=== PATIENT | female | born 1985 | race Two or more races ===

== ENCOUNTER 2024-12-31 22:47 | Emergency (ER) | payer SELFPAY ==
[2024-12-31 22:50] VITALS: BP 125/80
[2024-12-31 23:30] VITALS: BMI 32.2
--- NOTE | 2025-01-01 00:46 | ED.GENMED ---
History of Present Illness
General
Chief Complaint: Back Pain
Source: patient
Exam Limitations: none
Time Seen by Provider: 01/01/25 00:23
Nursing documentation reviewed up to this point in time: agreed with
History of Present Illness
History of Present Illness:
39 y/o F IDDM
h/o chronic back pain after work related injury in 05/[address] steve
has had MRI 06/2024 showing 'ruptured disc' and went through PT and now will probably need surgery
failed cortisone injections
here with flare of her chronic back pain
says she just put some trash int he trash can tonight at 830 pm and suddenly felt the pain
typical pattern R side lumbar down R leg and into R groin
worse with any change in position
felt best in seated position
took ibuprofen 600 mg at 830 pm
no relief
07/09 pain
no numbnes/tingling/weakness in the leg, no incontiencne
has RX for tramadol but hasn't been approved she says
she had oxycodone in may whne it occurred
Past History
Past History
ED Past Medical History: Hypercholesterolemia and IDDM
ED Past Surgical History: None
Social History
Tobacco: Non-smoker
Alcohol: None
Drug: None
Personal:
Living: with family
Review of Systems
Review of Systems
Allergies reviewed?: Yes
All Other Systems: Not applicable
Phy Exam
Physical Exam
Physical Exam:
GENERAL: Alert , in no apparent distress, comfortable at rest, pain with any change in position
HEAD: NCAT
NECK: no midline tenderness, active ROM intact, no paraspinal muscle tenderness;
CARDIAC: Regular rate and rhythm, no edema
LUNGS: Clear breath sounds bilaterally, no acute respiratory distress, no wheezes/rales/rhonchi
ABDOMEN: Soft, without focal tenderness, no r/g, no cvat, normal bowel sounds, nondistended
nontender abdomen
NEUROLOGICAL: Alert and oriented, no focal neuro deficits, CN intact, 5/5 strength, sensation intact, ambulation slight limp right leg
SKIN: Warm and dry,
MUSCULOSKELETAL: No edema, well perfused. Normal inspection of the right leg
Patient has no tenderness to palpation of the hip, minimal tenderness in the SI joint
Back: No midline tenderness, R parapspinal and lumbar muscle tenderness mid to lower lumbar region
+ straight leg raise on R
neuro intact
limp but strength and sensation present
PSYCH: Normal and appropriate interaction.
Course
Orders/Labs/Results
Orders:
Orders
01/01/25 00:43
Bedside Glucose- Treatment ONCE
Dexamethasone [Decadron] 10 mg PO NOW STA
HYDROmorphone [Dilaudid] 1 mg IM NOW STA
Ketorolac [Toradol] 30 mg IM NOW STA
01/01/25 01:35
Oxycodone [Roxicodone] 5 mg PO NOW STA
Abnormal Lab Results
01/01/25
00:49
POC Glucose 305 H mg/dl
(70-99)
Vital Signs
Initial and Last Documented VS:
Initial Vital Signs
Temp Pulse Resp BP Pulse Ox
36.7 C 102 20 125/80 98
12/31/24 22:50 12/31/24 22:50 12/31/24 22:50 12/31/24 22:50 12/31/24 22:50
Last Documented Vital Signs
Temp Pulse Resp BP Pulse Ox
36.7 C 102 20 125/80 98
12/31/24 22:50 12/31/24 22:50 12/31/24 22:50 12/31/24 22:50 12/31/24 22:50
MDM/Problems Addressed
Differential Diagnosis Includes:
lumar radiculopathy, muscle spasm
MDM/Problems Addressed:
39 y/o F
IDDM, poorly controlled
chronic lumbar radiculopathy
bent slightly forward to put something int he trash and felt flare up of her pain chronic in the R lumbar region radiating into the R leg
limp due to pain but no neurovascualrs ymptoms
on exam pt's midline lumbar region is not tender
she has tenderness laterally and a + straight leg raise 15 degrees
she has neuro intact, normal senseation and strength
no incontinence
no fever
unlikely to have need for emergent MRI
unfortuantely her blood sugar is poorly controlled, she is on several meds and still bg is 300+
will hold steroids
instead, IM pain meds
hyperglycemia could be stress response
will reassess
pt reassessed and feels better
walking slightly better
d/c home oxycodone, colace
*Critical Care Note
Total Time (30-74mins, 75-104mins- exclusive of procedures): Not Applicable
ED Attending Note
-
Portions of this chart may have been created with voice recognition software.� Occasional wrong word or��sound alike� substitutions may have occurred due to the inherent limitations of voice recognition software.
Discharge Plan
Departure
Patient Disposition: Home (Routine Discharge)
Date of Disposition: 01/01/25
Time of Disposition: 02:01
Patient with high blood pressure during this ER visit?: No
Condition: Fair
Covid-19: Not Applicable
Discharge Problem:
Chronic lumbar radiculopathy
Instructions: Radiculopathy (DC)
Prescriptions:
New
oxycodone 5 mg tablet
5 mg PO Q8H PRN (Reason: Pain) Qty: 12 0RF
docusate sodium [Colace] 100 mg capsule
100 mg PO BID Qty: 14 0RF
No Action
cephalexin 500 mg tablet
500 mg PO TID Qty: 21 0RF
Referrals:
Valentino Almendarez MD [Family Provider] - Follow up in 5-7 days
Activity Restrictions/Additional Instructions:
YOU SHOULD CALL YOUR ORTHOPEDIST REGARDING YOUR BACK PAIN
TAKE MOTRIN 3 TIMES A DAY
YOU CAN TAKE OXYCODONE 5 MG EVERY 6 HOURS NEEDED FOR SEVERE PAIN
COLACE TWICE A DAY TO PREVENT CONSTIPATION
TYLENOL EVERY 6 HOURS NEEDED
YORU BLOOD SUGAR IS ELEVATED, YOU SHOULD MAKE SURE TO HAVE THIS UNDER CONTROL, TAKE YOUR INSULIN AND AVOID SUGARS
RETURN FOR: SEVERE PAIN INABILITYT O WALK, FEVER, LEG WEAKNESS, LEG NUMBNESS, INCONTINENCE OR ANY CONCERNS.
Interventions
Interventions:
*Risk Screen - Suicide Last Done: 12/31/24 22:50
*General Assessment Last Done: 12/31/24 23:28
*Neglect/Abuse Screening Last Done: 12/31/24 22:50
*ED- Fall Risk Assessment Last Done: 12/31/24 22:50
*ED COVID-19 Vaccine History Last Done: 12/31/24 22:50
ED-Musculoskeletal Assessment Last Done: 12/31/24 23:28
Discharge Date and Time
Print Language: MONTSERRATIAN
[2025-01-01 00:50] LABS: Glucose - Point of Care 305 mg/dl (70-99)
[2025-01-01] MEDS: TORADOL 30 MG IM (01:15)
[2025-01-01] MEDS: DILAUDID 1 MG IM (01:15)
[2025-01-01] MEDS: ROXICODONE 5 MG PO (01:43)
== END 2025-01-01 02:00 | disposition home or self-care (01) ==
LOC: EMR 22:47
PROVIDERS: EMERGENCY PHYSICIAN Student in an Organized Health Care Education/Training Program; FAMILY PHYSICIAN Family Medicine
DX: M54.16 Radiculopathy, lumbar region (principal)
CPT/HCPCS: 99284; 96372 ×2; 82962

== ENCOUNTER 2025-07-31 18:25 | Emergency (ER) | payer MEDICAID, SELFPAY ==
[2025-07-31 18:32] VITALS: BP 151/92
[2025-07-31 19:02] LABS: Hematocrit 31.0 % (37.0-47.0); Hemoglobin 10.0 g/dL (12.0-16.0); Mean Corp Hgb Conc. 32.3 g/dL (33.0-37.0); Mean Corpuscular Volume 72.1 fL (81.0-99.0); Nucleated Red Blood Cells % 0 %; Platelet Count 298 10^3/uL (130-400); Red Cell Dist. Width 13.1 % (11.5-14.5)
[2025-07-31 19:11] LABS: HCG, Serum Qualitative Screen Negative
[2025-07-31 19:17] LABS: ALT (SGPT) 17 U/L (0-35); AST (SGOT) 18 U/L (14-36); Albumin 4.3 g/dl (3.5-5.0); Alkaline Phosphatase 78 U/L (38-126); Blood Urea Nitrogen 13 mg/dl (7-17); Calcium 9.6 mg/dl (8.4-10.2); Carbon Dioxide 29 mmol/L (22-30); Chloride 103 mmol/L (98-107); Glucose 212 mg/dl (70-99); Potassium 3.9 mmol/L (3.5-5.1); Sodium 139 mmol/L (135-145); Total Protein 7.6 g/dl (6.3-8.2); eGFR > 60.00
[2025-07-31 19:23] LABS: Troponin I < 0.012 ng/ml
[2025-07-31 19:28] LABS: Urine Character Clear (Clear)
[2025-07-31 19:37] LABS: Urine Squamous Cell 21-25 /LPF (Few)
[2025-07-31 19:38] LABS: Urine Red Blood Cell None Seen /HPF (0-2)
[2025-07-31 22:01] VITALS: BP 123/85
[2025-07-31 22:29] VITALS: BP 117/66
[2025-07-31 22:34] VITALS: BMI 31.4
--- NOTE | 2025-07-31 22:38 | EDRN ---
Pt was having chest pain since last week - once last week and this week couple days ago. Today is the third time she has had cp this week. Started around 12-1230 felt squeezing. At 1600 it was a sharp shooting pain traveling down L arm and into L
posterior shoulder. On the way to the ED, pt's L jaw started hurting. Pt says the squeezing sensation is still there 'like something is putting pressure on my chest and squeezing very hard.' No mediations taken for pain. Pt says her pain is now
a 10/10 and says it has been like this every time but she has never thought to take any medication for it. Pt with nausea, vomited once at home when pain started. Pt with reported dry cough. No sob, abd pain, fever/chills, urinary symptoms,
weakness, dizziness. No recent air travel or long car rides, swelling in legs or pain. Nothing changes pain.
[2025-07-31 23:00] VITALS: BP 124/78
[2025-07-31 23:35] LABS: Lipase 456 U/L (23-300)
[2025-08-01] VITALS: BP 107/66
[2025-08-01 01:00] VITALS: BP 110/69
[2025-08-01 01:10] VITALS: BP 114/69
--- NOTE | 2025-08-01 01:59 | ED.GENMED ---
History of Present Illness
General
Chief Complaint: Chest Pain
Source: patient
Time Seen by Provider: 07/31/25 22:31
Nursing documentation reviewed up to this point in time: agreed with
History of Present Illness
History of Present Illness:
Note:
CHIEF COMPLAINT(S)
Chest pain
HISTORY OF PRESENT ILLNESS
The patient is a 39-year-old female with a known history of diabetes, presenting with complaints of chest pain. The symptoms began last week with episodes of pressure-like pain. The patient describes the chest pain as shooting and sharp at times,
occurring while at rest. 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 The patient reported accompanying symptoms of nausea and vomiting but denies any shortness of breath. He
noted the pain radiating to his left arm, jaw, and back. The episodes do not seem to be provoked by activity such as climbing stairs, and there is no noticeable pattern related to meal consumption. The patient mentions the pain just subsiding
spontaneously. She denies any recent use of medication for these symptoms.
PAST MEDICAL AND SURIGICAL HISTORY
The patient has diabetes, currently managed with medications including Ozempic (1 mg) and Lantus (40 units).
EXTERNAL RECORDS REVIEWED
The patients cardiac enzymes have been evaluated and appeared normal at the time of the assessment.
CHRONIC MEDICAL CONDITIONS SIGNIFICANTLY AFFECTING CARE
The patient has diabetes, which is under control with Ozempic and Lantus.
FAMILY HISTORY
The patient reports a family history of cardiac problems. His mother had multiple heart attacks and eventually succumbed to a cardiac-related condition in her mid-60s.
SOCIAL HISTORY
The patient reports occasional alcohol consumption and denies smoking or any recreational drug use. The patient is not currently employed and stays at home.
MEDICATIONS
- Ozempic 1 mg
- Lantus 40 units
PHYSICAL EXAM
General: Alert, minimal to no acute distress.
Skin: Warm, dry.
Head: Normocephalic, atraumatic.
Neck: Supple, trachea midline.
Eyes, Ears, Nose, Mouth and Throat: Oral mucosa moist.
Cardiovascular: Normal peripheral perfusion, No edema.
Respiratory: Respirations are non-labored.
Gastrointestinal: Abdomen nondistended.
Back: Normal range of motion, Normal alignment.
Musculoskeletal: Normal range of motion, normal strength.
Neurological: Alert and oriented to person, place, time, and situation. No focal neurological deficit observed.
Psychiatric: Cooperative, appropriate mood & affect.
PLAN
A chest CT scan is planned to rule out any vascular issues, particularly a pulmonary embolism. Cardiac enzyme analysis was conducted and showed normal results. The patient is informed about these findings and the rationale for the further imaging
study.
DIFFERENTIAL DIAGNOSIS
The Differential Diagnosis includes, in no particular order and is not limited to:
1. Acute Coronary Syndrome
2. Musculoskeletal Pain
3. Gastroesophageal Reflux Disease (GERD)
4. Costochondritis
5. Pulmonary Embolism
6. Aortic Dissection
7. Pericarditis
8. Esophageal Spasm
9. Panic Attack/Anxiety
10. Peptic Ulcer Disease
Disposition:
SUMMARY OF ENCOUNTER
The patient is a 39-year-old female with a history of diabetes who presented to the emergency department with complaints of chest pain. The pain was described as shooting and sharp, occurring at rest, and radiating to the left arm, jaw, and back.
She experienced accompanying symptoms of nausea and vomiting. Given the presentation and family history of cardiac issues, a chest CT scan was conducted to rule out pulmonary embolism, which was negative. Cardiac enzymes, including troponin, were
evaluated and found to be normal. An EKG was performed, showing a normal rhythm with a heart rate of 103, no ischemia present. The patients heart rate monitored in the 70s, and she remained stable throughout the visit.
DISPOSITION
Patient to be discharged home.
ASSESSMENT
The patients chest pain is non-cardiac in origin as investigations including chest CT, EKG, and cardiac enzymes were negative. Given her symptoms and negative workup, the pain could be musculoskeletal or related to other differential diagnoses
considered.
PLAN
The patient is planned for discharge with instructions to follow up with her primary care physician for further evaluation and management.
INDEPENDENT REVIEW OF LABS AND INTERPRETATION OF TESTS
- My independent review of the CT-Pulmonary Embolism study is negative.
- My independent review of troponin is negative.
- My independent interpretation of the EKG shows a normal rhythm, rate of 103, normal intervals, and no signs of ischemia. The heart rate monitored in the 70s.
FOLLOW-UP INSTRUCTIONS
The patient is advised to follow up with her primary care physician.
MEDICAL DECISION MAKING
- Number and Complexity of Problems Addressed: Chronic conditions affecting care include diabetes. Differential diagnoses considered include acute coronary syndrome, musculoskeletal pain, gastroesophageal reflux disease (GERD), costochondritis,
pulmonary embolism, aortic dissection, pericarditis, esophageal spasm, panic attack/anxiety, and peptic ulcer disease.
- Data:
Category 1:
- Non-emergency department records reviewed, including cardiac enzyme levels.
- Clinical information obtained from the patient regarding chest pain onset and symptoms.
Category 2:
- Reviewed and interpreted the EKG, which showed normal rhythm.
- Risk:
Consideration of Admission/Observation: Escalation of care including admission/observation was considered given the complexity and risk of the patients presenting complaint, exam findings, and her underlying comorbidities. However, ultimately the
patient is considered safe for outpatient management with close follow-up. Reasoning: Work-up was reassuring, did not reveal any acute life/organ-threatening processes, patients symptoms were well-controlled upon reevaluation, reexamination was
reassuring, vitals were stable, patient agreeable with discharge, reliable for follow-up.
DIAGNOSIS
Chest pain, unspecified - ICD-10 code: R07.9
Past History
Past History
ED Past Medical History: Hypercholesterolemia and IDDM
ED Past Surgical History: None
Social History
Tobacco: Non-smoker
Alcohol: None
Drug: None
Personal:
Living: with family
Phy Exam
Physical Exam
Physical Exam:
.
Scores
Heart Score for Chest Pain Patients
STEMI patient?: No
History: Slightly or Non-Suspicious
ECG: Normal
Age: </= 45 years
Risk Factors: 1 or 2 Risk Factors
Troponin: </= Normal Limit
Heart Score for Chest Pain Patients: 1
Heart Score Risk: 2.5% MACE over next 6 weeks
Course
Orders/Labs/Results
Orders:
Orders
07/31/25 18:26
Electrocardiogram (*1) Urgent
Reason for Study: Chest Pain
EKG- Treatment ONCE
07/31/25 18:35
Cardiac Monitoring- Treatment ONCE
IV Insert/Care/Rem.- Treatment PRN
Test Result ONCE
O2 Therapy [RESP] Urgent
Titrate/Wean O2 to maintain O2 sat greater than (%): 90
Special Instructions: Maintain sats >/=90%
Pulse Ox/spot Check [RESP] Urgent
Quantity: 1
Special Instructions: ON ROOM AIR
07/31/25 18:39
Complete Blood Count/With Diff Urgent
Comprehensive Metabolic Panel Urgent
HCG, Serum Qualitative Screen Urgent
Comment: Notify provider if positive test present
Lipase Urgent
Comment: ADD ON
Troponin I Urgent
07/31/25 18:46
Urinalysis Reflex To Culture Urgent
Date Specimen was Collected: 07/31/25
Time Specimen was Collected: 18:45
Urine Microscopic Reflex Cult Urgent
Urine Culture Urgent
CHRISTINA Source: U
Specimen Description:
Date Specimen was Collected: 07/31/25
Time Specimen was Collected: 18:45
07/31/25 23:01
Add On- LAB Urgent
Tests Added?: lipase
08/01/25 00:04
CT Pe/abd/pel W Urgent
Reason For Exam: r abd pain, elev lipase
Abnormal Lab Results
07/31/25 07/31/25
18:39 18:46
Hgb 10.0 L g/dL
(12.0-16.0)
Hct 31.0 L %
(37.0-47.0)
MCV 72.1 L fL
(81.0-99.0)
MCH 23.3 L pg
(27.0-31.0)
MCHC 32.3 L g/dL
(33.0-37.0)
Glucose 212 H mg/dl
(70-99)
Lipase 456 H U/L
(23-300)
Leukocyte Esterase Rfl 1+ A
(Negative)
Urine Bacteria (Reflex) Few A
(Negative)
07/31/25 18:39
07/31/25 18:39
Vital Signs
Initial and Last Documented VS:
Initial Vital Signs
Temp Pulse Resp BP Pulse Ox
97.9 F 97 18 151/92 100
07/31/25 18:32 07/31/25 18:32 07/31/25 18:32 07/31/25 18:32 07/31/25 18:32
Last Documented Vital Signs
Temp Pulse Resp BP Pulse Ox
97.9 F 82 14 114/69 98
07/31/25 18:32 08/01/25 01:10 EST 08/01/25 01:10 EST 08/01/25 01:10 EST 08/01/25 01:10 EST
*Radiology
Radiology exam reviewed: radiology read reviewed
*Pulse Oximetry
SaO2: 98
Oxygen Mode of Delivery: Room air
Patient hypoxic: no
*Critical Care Note
Total Time (30-74mins, 75-104mins- exclusive of procedures): Not Applicable
Update Note
Update Note:
NAME: JED CHESTER
DATE OF EXAM: 08/01/2025
Patient No: [id number]
Physician: EUGENE^Brennan
Date of : 1985
Past Medical History (entered by Technologist):
Reason For Exam (entered by Technologist):
Other Notes (entered by Technologist):
Additional Information (per Vision Radiologist): Assess for PE
CTA chest with intravenous contrast, pulmonary artery protocol
CT abdomen/pelvis with contrast
Comparison exam: None
IMPRESSION:
Chest:
No evidence of pulmonary artery embolus.
No consolidation or effusion. Anterior chest wall surgical clips bilaterally.
Degenerative changes spine.
No bowel or renal obstruction.
No intra-abdominal free air or free fluid.
Appendix not visible.
Gallbladder is unremarkable.
Case finalized on 08/01/25 01:57 EST
Tamika Zuniga M.D.
This report has been electronically signed and verified by the Radiologist whose name is printed above.
ED Attending Note
-
Portions of this chart may have been created with voice recognition software.� Occasional wrong word or��sound alike� substitutions may have occurred due to the inherent limitations of voice recognition software.
Discharge Plan
Departure
Patient Disposition: Home (Routine Discharge)
Date of Disposition: 08/01/25
Time of Disposition: 01:04
Patient with high blood pressure during this ER visit?: Yes
Condition: Good
Discharge Problem:
Chest pain
Instructions: Chest Pain DCA Follow Up, BLOOD PRESSURE
Prescriptions:
No Action
metformin 500 mg Tablet
500 mg PO BID
insulin glargine [Lantus U-100 Insulin] 100 unit/mL Solution
40 unit SC HS
fenofibrate micronized 43 mg Capsule
43 mg PO DAILY
Ozempic 1 mg/dose (4 mg/3 mL) Pen Injector
1 mg SC QWEEK
Referrals:
Tanesha,Valentino Papa, MD [Family Provider, Family Practice]
Activity Restrictions/Additional Instructions:
Thank You for choosing [facility].
It was a pleasure meeting you and taking part in your care. We hope for your continued healing and wellness.
Please read discharge instructions in their entirety. However, they are for general education and may not describe your exact diagnosis at discharge. Information on your ER visit and medical conditions were discussed with you along with appropriate
follow up information...
If indicated, please take your medications as instructed and indicated on discharge paperwork.
Please schedule a follow up appointment as directed. Call to schedule an appointment
Please return to the emergency department with ANY change in, persisting, or worsening of symptoms. If any of your symptoms do not improve, or persist, or become more severe within 6-12 hours, please return to the emergency department for further
care.
Please return to the emergency department if you develop a headache, neck pain/stiffness, fever greater than 100.4F, chest pain, shortness of breath, persistent nausea, vomiting, slurred speech, difficulty walking, numbness/tingling, weakness, signs
of infection or any other symptoms that are worrisome to you.
If you have any questions or concerns please do not hesitate to call the Hospital at .
Interventions
Interventions:
*Risk Screen - Suicide Last Done: 07/31/25 18:32
*General Assessment Last Done: 07/31/25 18:32
*Neglect/Abuse Screening Last Done: 07/31/25 18:32
*ED- Fall Risk Assessment Last Done: 07/31/25 22:43
*ED COVID-19 Vaccine History Last Done: 07/31/25 22:42
*ED Influenza Vaccine History Last Done: 07/31/25 22:42
*Nursing Disposition Last Done: 08/01/25 01:15
ED- Cardiac Assessment Last Done: 07/31/25 22:48
Discharge Date and Time
Discharge Date/Time: 08/01/25 01:15 EST
Print Language: BERMUDIAN
== END 2025-08-01 01:15 | disposition home or self-care (01) ==
LOC: EMR 18:25
PROVIDERS: Emergency Medicine; EMERGENCY PHYSICIAN Student in an Organized Health Care Education/Training Program; FAMILY PHYSICIAN Family Medicine
DX: R07.89 Other chest pain (principal); E11.9 Type 2 diabetes mellitus without complications; E78.00 Pure hypercholesterolemia, unspecified; Z79.4 Long term (current) use of insulin; Z79.85 Long-term (current) use of injectable non-insulin antidiabetic drugs; Z56.0 Unemployment, unspecified
CPT/HCPCS: 99284; 71275; 74177; 80053; 81003; 81015; 83690; 84484; 84703; 85025; 87086; 93005; Q9967